=== PATIENT | female | born 1930 | race Caucasian/White ===

== ENCOUNTER 2016-07-11 08:00 | Outpatient (CLI) | payer MEDICARE, OTHER | END 2016-07-11 23:59 | DX: R19.5 Other fecal abnormalities (principal) ==

== ENCOUNTER 2017-03-24 12:00 | Outpatient (CLI) | payer MEDICARE, OTHER ==
[2017-03-24 17:46] LABS: BILIRUBIN,URINE NEGATIVE (NEGATIVE)
[2017-03-24 18:30] LABS: UR CULTURE IF IND NOT INDICATED; WBC,URINE 0-3 /HPF (0-5)
== END 2017-03-24 12:01 ==
LOC: LAB.R 12:00
PROVIDERS: ATTEND Nurse Practitioner Family
DX: N39.0 Urinary tract infection, site not specified (principal)
CPT/HCPCS: 81001; 87086

== ENCOUNTER 2017-05-12 16:04 | Outpatient (CLI) | payer MEDICARE, OTHER ==
[2017-05-12 17:33] LABS: BASOPHILS # (AUTO) 0.1 10^3/uL (0.0-0.1); BASOPHILS % (AUTO) 0.9 %; EOSINOPHILS # (AUTO) 0.1 10^3/uL (0.0-0.7); EOSINOPHILS % (AUTO) 2.3 %; HGB - HEMOGLOBIN 14.1 g/dL (12.0-16.0); LYMPHOCYTES # (AUTO) 1.8 10^3/uL (1.5-3.5); LYMPHOCYTES % (AUTO) 29.4 %; MEAN CORPUSCULAR HEMOGLOBIN 30.9 pg (27.0-31.0); MEAN CORPUSCULAR HGB CONC 33.8 g/dL (32.0-36.0); MEAN CORPUSCULAR VOLUME 91.3 fL (81.0-99.0); MEAN PLATELET VOLUME 8.1 fL (7.9-10.8); MONOCYTES # (AUTO) 0.5 10^3/uL (0.0-1.0); NEUTROPHILS # (AUTO) 3.6 10^3/uL (1.5-6.6); NEUTROPHILS % (AUTO) 59.4 %; PLT - PLATELET COUNT 231 10^3/uL (130-450); RED BLOOD COUNT 4.56 10^6/uL (4.20-5.40); RED CELL DISTRIBUTION WIDTH 13.2 % (12.0-15.0)
[2017-05-12 17:46] LABS: ALBUMIN 4.5 g/dL (3.2-5.5); ALBUMIN/GLOBULIN RATIO 1.6 (1.0-2.2); BILIRUBIN,TOTAL 0.6 mg/dL (0.2-1.0); CALCIUM 9.6 mg/dL (8.5-10.3); CREATININE 0.8 mg/dL (0.4-1.0); TOTAL PROTEIN 7.4 g/dL (6.7-8.2)
== END 2017-05-12 16:05 | disposition home or self-care (01) ==
LOC: LAB.F 16:04
PROVIDERS: ATTEND Physician Assistant Medical
DX: I10 Essential (primary) hypertension (principal)
CPT/HCPCS: 36415; 80053; 85025

== ENCOUNTER 2017-05-29 13:01 | Outpatient (CLI) | payer MEDICARE, OTHER | END 2017-05-29 13:02 | disposition critical access hospital (66) | LOC: EMS 13:01 | PROVIDERS: ATTEND Surgery | DX: R42 Dizziness and giddiness (principal); R10.9 Unspecified abdominal pain; R20.2 Paresthesia of skin | CPT/HCPCS: A0425; A0429 ==

== ENCOUNTER 2017-05-29 13:37 | Emergency (ER) | payer MEDICARE, OTHER ==
--- NOTE | 2017-05-29 14:34 | ED Physician Documentation ---
PD HPI FOCAL NEURO - Stated complaint Stated Complaint: DIZZY, UPPER GASTRIC PAIN, BILAT NUMBNESS - Chief complaint Chief Complaint: General - History obtained from History obtained from: Patient - History of Present Illness Timing - onset: How many days ago (few days of feeling lightheaded at times. Few weeks of both legs/feet feeling numbness and intermittent some cramping. More with resting and not with walking. No edema nor discoloration. No symptoms of arms nor face.) Timing - duration: Days Timing - details: Gradual onset, Waxing and waning Severity of deficit: Moderate Weakness: No: Face, Arm, Hand, Leg, Foot, Right, Left, Other Numbness: Leg, Foot, Right, Left. No: Face, Arm, Hand Associated symptoms: No: Headache, Nausea / vomiting, Seizure, Head injury, Chest pain, Fever Contributing factors: negative: Anticoagulated, Vascular dz, Atrial fibrillation Baseline status: positive: A&OX3, ambulatory, indep Similar symptoms before: Has not had sx before Recently seen: Not recently seen Review of Systems Constitutional: denies: Fever, Chills Eyes: denies: Loss of vision, Decreased vision Nose: denies: Rhinorrhea / runny nose, Congestion Throat: denies: Sore throat Cardiac: reports: Chest pain / pressure. denies: Palpitations Respiratory: denies: Dyspnea, Cough GI: denies: Abdominal Pain, Nausea, Vomiting, Diarrhea : denies: Dysuria, Frequency Neurologic: reports: Numbness (both legs and feet feeling numbness). denies: Focal weakness, Difficulty speaking, Near syncope (but feeling lightheaded at times), Confused, Altered mental status, Headache, Head injury PD PAST MEDICAL HISTORY - Past Medical History Cardiovascular: Hypertension, High cholesterol Neuro: None Endocrine/Autoimmune: None GI: Diverticulitis - Past Surgical History Past Surgical History: Yes General: Cholecystectomy, Appendectomy, Colonoscopy Ortho: Knee replacement /[employer] REP: Hysterectomy - Present Medications Home Medications: Ambulatory Orders Medication Instructions Recorded Confirmed Omeprazole [PriLOSEC] 20 mg PO DAILY #14 capsule 03/11/16 05/29/17 Docusate Sodium 100 mg PO DAILY PRN #30 capsule 05/29/17 Famotidine [Pepcid] 20 mg PO ONCE #30 tablet 05/29/17 traZODone [Desyrel] 0.5 tab PO DAILY 05/29/17 05/29/17 - Allergies Allergies/Adverse Reactions: Allergies Allergy/AdvReac Type Severity Reaction Status Date / Time Penicillins Allergy Unknown Verified 05/29/17 13:50 codeine AdvReac Nausea Verified 05/29/17 13:50 - Social History Does the pt smoke?: No Smoking Status: Never smoker Does the pt drink ETOH?: Yes Does the pt have substance abuse?: No - Family History Family history: reports: Non contributory - Immunizations Immunizations are current?: Yes - POLST Patient has POLST: No PD ED PE NORMAL - Vitals Vital signs reviewed: Yes - General General: Alert and oriented X 3, Well developed/nourished - HEENT HEENT: PERRL, EOMI, Ears normal, Pharynx benign - Neck Neck: Supple, no meningeal sign, No bony TTP, No adenopathy, No JVD - Cardiac Cardiac: RRR, No murmur - Respiratory Respiratory: Clear bilaterally - Abdomen Abdomen: Soft, Non tender - Female Female : Deferred - Rectal Rectal: Deferred - Back Back: No CVA TTP, No spinal TTP - Derm Derm: Normal color, Warm and dry, No rash - Extremities Extremities: No deformity, No tenderness to palpate, Normal ROM s pain, No edema , No calf tenderness / cord - Neuro Neuro: Alert and oriented X 3, strip winder 2-12 intact, No motor deficit, No sensory deficit (though she says her feel feel numb, she is able to feel sensation of touch and sharpness in feet/ankles. Good color and pulses in feet. ), Normal speech - Psych Psych: Normal mood NIHSS - Level of Consciousness Level of consciousness: (0) Alert, Keenly responsive LOC Questions: (0) Answers both Q's correct LOC Commands: (0) Performs both correctly - Gaze Best Gaze: (0) Normal - Visual Visual: (0) No loss - Facial Palsy Facial Palsy: (0) Normal, symmetrical movement - Motor Arms (both separate) Motor Arm (right): (0) No drift Motor Arm (left): (0) No drift - Motor Legs (both separate) Motor Leg (right): (0) No drift Motor Leg (left): (0) No drift - Limb Ataxia Limb Ataxia: (0) Absent - Sensory Sensory: (0) Normal - Best Language Best Language: (0) No aphasia - Dysarthria Dysarthria: (0) Normal - Extinction and Inattention (formally neg Extinction and inattention: (0) No abnormality - Total Score/Results Total Score/Result: 0 Results - Vitals Vitals: Oxygen O2 Source Room air - EKG (time done) 16:59 Rhythm: NSR [place]: LAD Intervals: Normal CT, RBBB QRS: LVH Ischemia: No: ST elevation c/w ischemia, ST depression Compare to prior EKG: Old EKG unavailable - Labs Labs: Laboratory Tests 05/29/17 05/29/17 05/29/17 14:00 16:23 16:23 WBC 6.0 RBC 4.48 Hgb 14.3 Hct 40.6 MCV 90.7 MCH 31.9 H MCHC 35.2 RDW 13.1 Plt Count 259 MPV 7.8 L Neut # 4.2 Lymph # 1.2 L [place] # 0.4 Eos # 0.1 Baso # 0.1 Absolute Nucleated RBC 0.00 Nucleated RBC % 0.0 Sodium 131 L Potassium 4.1 Chloride 99 L Carbon Dioxide 22 Anion Gap 10.0 BUN 11 Creatinine 0.7 Estimated GFR (MDRD) 80 L Glucose 108 H Calcium 9.4 Magnesium 2.2 Total Bilirubin 0.8 AST 24 ALT 15 Alkaline Phosphatase 62 Troponin I Total Protein 7.3 Albumin 4.5 Globulin 2.8 Albumin/Globulin Ratio 1.6 Lipase 25 TSH Urine Color YELLOW Urine Clarity CLEAR Urine pH 7.5 Ur Specific [place] 1.010 Urine Protein NEGATIVE Urine Glucose (UA) NEGATIVE Urine Ketones NEGATIVE Urine Occult Blood NEGATIVE Urine Nitrite NEGATIVE Urine Bilirubin NEGATIVE Urine Urobilinogen 0.2 (NORMAL) Ur Leukocyte Esterase NEGATIVE Ur Microscopic Review NOT INDICATED Urine Culture Comments NOT INDICATED 05/29/17 05/29/17 16:23 16:23 WBC RBC Hgb Hct MCV MCH MCHC RDW Plt Count MPV Neut # Lymph # [place] # Eos # Baso # Absolute Nucleated RBC Nucleated RBC % Sodium Potassium Chloride Carbon Dioxide Anion Gap BUN Creatinine Estimated GFR (MDRD) Glucose Calcium Magnesium Total Bilirubin AST ALT Alkaline Phosphatase Troponin I < 0.04 Total Protein Albumin Globulin Albumin/Globulin Ratio Lipase TSH 3.29 Urine Color Urine Clarity Urine pH Ur Specific [place] Urine Protein Urine Glucose (UA) Urine Ketones Urine Occult Blood Urine Nitrite Urine Bilirubin Urine Urobilinogen Ur Leukocyte Esterase Ur Microscopic Review Urine Culture Comments - Rads (name of study) head CT Radiology: Prelim report reviewed (normal for age; no acute findings) PD MEDICAL DECISION MAKING - ED course Complexity details: reviewed results, considered differential (I don't have a reason for her leg/feet numbness. Circulation appears normal. Lytes are okay. Not diabetic. Not on meds to suspect it (such as statins). upper abd pain sounds likely constipation but consider gastritis (not hurting nor improved directly with eating though). ), d/w patient Departure - Departure Disposition: 01 Home, Self Care Clinical Impression: Bilateral leg numbness, Upper abdominal pain, Light-headed feeling Condition: Stable Record reviewed to determine appropriate education?: Yes Instructions: ED Epigastric Pain UKO, ED Paraesthesias Follow-Up: Jose John MD [Primary Care Provider] - Prescriptions: Docusate Sodium 100 mg PO DAILY PRN #30 capsule PRN Reason: Constipation Famotidine [Pepcid] 20 mg PO ONCE #30 tablet Comments: I do not have an obvious answer for your leg numbness. Sometimes it is nerve irritation (neuropathy). For your upper abdominal pain, I would try a stool softener daily and an acid reducing medicine. Your basic blood tests appear normal here. Follow-up with your primary care early next week for follow-up on this and to see how much improvement you are having. Tylenol 500 mg every 6 hours if needed for pains. Discharge Date/Time: 05/29/17 17:38
--- NOTE | 2017-05-29 16:16 | CT Preliminary Report ---
Exam: CT HEAD W/O IMPRESSION: Generalized age-related cortical atrophic changes without evidence of acute intracranial abnormality. [facility] SITE ID: [id number]
--- NOTE | 2017-05-29 16:16 | CT Report ---
EXAM: CT HEAD EXAM DATE: 05/29/2017 03:59 PM. CLINICAL HISTORY: Headache abrupt during night. COMPARISON: None. TECHNIQUE: Multiaxial CT images were obtained from the foramen magnum to the vertex. Reformats: Coron al. IV contrast: None. In accordance with CT protocol optimization, one or more of the following dose reduction techniques w ere utilized for this exam: automated exposure control, adjustment of mA and/or KV based on patient s ize, or use of iterative reconstructive technique. FINDINGS: Parenchyma: No intraparenchymal hemorrhage. No evidence of mass, midline shift, or CT findings of acu te infarction. Guerra-white differentiation is distinct. Diffuse chronic microangiopathic white matter changes are evident. Extraaxial Spaces: Normal for age. No subdural or epidural collections identified. Ventricles: The ventricles and cortical sulci are enlarged, consistent with age-related tissue loss. Sinuses and orbits: Status post bilateral lens replacement surgery. Imaged paranasal sinuses, orbits otherwise, and mastoids show no significant abnormality. Bones: No evidence of fracture or calvarial defect. Other: None. IMPRESSION: Generalized age-related cortical atrophic changes without evidence of acute intracranial abnormality. [facility] Referring Provider Line: [phone] SITE ID: [id number]
[2017-05-29 16:17] LABS: BILIRUBIN,URINE NEGATIVE (NEGATIVE); GLUCOSE, URINE (UA) NEGATIVE (NEGATIVE); KETONES,URINE (UA) NEGATIVE (NEGATIVE); LEUKOCYTE ESTERASE, URINE NEGATIVE (NEGATIVE); NITRITE,URINE NEGATIVE (NEGATIVE); OCCULT BLOOD,URINE NEGATIVE (NEGATIVE); PH,URINE 7.5 PH (5.0-7.5); PROTEIN,URINE NEGATIVE (NEGATIVE); UROBILINOGEN,URINE 0.2 (NORMAL) E.U./dL (NORMAL)
[2017-05-29 16:18] LABS: CLARITY,URINE CLEAR (CLEAR)
[2017-05-29 16:36] LABS: BASOPHILS # (AUTO) 0.1 10^3/uL (0.0-0.1); BASOPHILS % (AUTO) 1.3 %; EOSINOPHILS # (AUTO) 0.1 10^3/uL (0.0-0.7); EOSINOPHILS % (AUTO) 1.1 %; HGB - HEMOGLOBIN 14.3 g/dL (12.0-16.0); LYMPHOCYTES # (AUTO) 1.2 10^3/uL (1.5-3.5); LYMPHOCYTES % (AUTO) 20.9 %; MEAN CORPUSCULAR HEMOGLOBIN 31.9 pg (27.0-31.0); MEAN CORPUSCULAR HGB CONC 35.2 g/dL (32.0-36.0); MEAN CORPUSCULAR VOLUME 90.7 fL (81.0-99.0); MEAN PLATELET VOLUME 7.8 fL (7.9-10.8); MONOCYTES # (AUTO) 0.4 10^3/uL (0.0-1.0); MONOCYTES % (AUTO) 6.1 %; NEUTROPHILS # (AUTO) 4.2 10^3/uL (1.5-6.6); NEUTROPHILS % (AUTO) 70.6 %; PLT - PLATELET COUNT 259 10^3/uL (130-450); RED BLOOD COUNT 4.48 10^6/uL (4.20-5.40); RED CELL DISTRIBUTION WIDTH 13.1 % (12.0-15.0)
[2017-05-29 16:42] LABS: ALBUMIN 4.5 g/dL (3.2-5.5); ALBUMIN/GLOBULIN RATIO 1.6 (1.0-2.2); BILIRUBIN,TOTAL 0.8 mg/dL (0.2-1.0); CALCIUM 9.4 mg/dL (8.5-10.3); CREATININE 0.7 mg/dL (0.4-1.0); MAGNESIUM 2.2 mg/dL (1.7-2.8); TOTAL PROTEIN 7.3 g/dL (6.7-8.2)
[2017-05-29 17:29] VITALS: BP 163/73
== END 2017-05-29 17:38 | disposition home or self-care (01) ==
LOC: EDUNIT# → EDBD → ED 13:37
DX: R20.0 Anesthesia of skin (principal); R10.13 Epigastric pain; R42 Dizziness and giddiness; I45.2 Bifascicular block; I10 Essential (primary) hypertension; E78.00 Pure hypercholesterolemia, unspecified; Z96.659 Presence of unspecified artificial knee joint
CPT/HCPCS: 36415; 70450; 80053; 81001; 81003; 83690; 83735; 84443; 84484; 85025; 87086; 93005; 99283; 99284

== ENCOUNTER 2017-06-03 08:59 | Outpatient (CLI) | payer MEDICARE, OTHER ==
[2017-06-03 18:12] LABS: CHOL/HDL RATIO 3.7 (<4.4); CHOLESTEROL 250 mg/dL; HDL CHOLESTEROL 68 mg/dL; LDL CHOLESTEROL,CALCULATED 132 mg/dL; LDL/HDL RATIO 1.9 (<4.4); VLDL CHOLESTEROL 50 mg/dL
== END 2017-06-03 09:00 | disposition home or self-care (01) ==
LOC: LAB.F 08:59
PROVIDERS: ATTEND Physician Assistant Medical
DX: E78.5 Hyperlipidemia, unspecified (principal)
CPT/HCPCS: 36415; 80061; 83721

== ENCOUNTER 2017-06-05 10:42 | Outpatient (CLI) | payer MEDICARE, OTHER ==
--- NOTE | 2017-06-05 14:22 | XRAY Report ---
COMPLETE LUMBAR SPINE: 06/05/2017 CLINICAL INDICATION: Foot numbness. FINDINGS: AP, lateral, oblique, and coned down views of the lumbar spine were obtained. There is left hemisacralization of the L5 vertebral body, with pseudoarthrosis formation. Moderate degenerative disk and facet disease is present, with disk space narrowing worst at L4-L5. There is minimal degenerative anterolisthesis of L3 on L4. No compression fracture is seen. The bowel gas pattern is normal. 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 TD: 06/05/2017 14:17
== END 2017-06-05 10:43 | disposition home or self-care (01) ==
LOC: DI.S 10:42
PROVIDERS: ATTEND Physician Assistant Medical
DX: M51.36 Other intervertebral disc degeneration, lumbar region (principal); M47.896 Other spondylosis, lumbar region; M43.16 Spondylolisthesis, lumbar region
CPT/HCPCS: 72110

== ENCOUNTER 2017-06-16 12:59 | Outpatient (CLI) | payer MEDICARE, OTHER ==
[~2017-06-16 12:59] MED LIST: GADOBUTROL 7.5 MMOL/7.5 ML VIAL ONE
[2017-06-16] MEDS ORDERED: GADOBUTROL 7.5 MMOL/7.5 ML VIAL IVP ONE (13:57)
--- NOTE | 2017-06-16 15:17 | MRI Report ---
EXAM MRA BRAIN EXAM DATE: 06/16/2017 01:51 PM. CLINICAL HISTORY: DIZZINESS AND GIDDINESS,ANESTHESIA OF SKIN. COMPARISON: CT head 05/29/2017 TECHNIQUE: Multiplanar, multisequence MRA sequences of the brain were performed. Other: None. Post-pr ocessing: Multiplanar 3D MIP reconstructions. IV Contrast: None. FINDINGS: RIGHT Internal Carotid (ICA): No aneurysm, stenosis or anomaly. Middle Cerebral (MCA): No aneurysm, stenosis or anomaly. Anterior Cerebral (JUANI): No aneurysm, stenosis or anomaly. Posterior Cerebral (PARKING LOT ATTENDANT): No aneurysm, stenosis or anomaly. Posterior Communicating (P-COM): The P1 segment is small but patent. Prominent right posterior commun icating artery additionally supplies the right PARKING LOT ATTENDANT which is otherwise unremarkable. Vertebral: The right vertebral artery is dominant. The V3 and proximal V4 segments are not well-visua lized likely due to in plane saturation. No aneurysm, stenosis or anomaly in the visualized upper seven tebral artery. LEFT Internal Carotid (ICA): No aneurysm, stenosis or anomaly. Middle Cerebral (MCA): No aneurysm, stenosis or anomaly. Anterior Cerebral (JUANI): No aneurysm, stenosis or anomaly. Posterior Cerebral (PARKING LOT ATTENDANT): The P1 segment of the left PARKING LOT ATTENDANT is not clearly visualized, likely hypoplasti c or aplastic.. Prominent left posterior communicating artery primarily supplies the left PARKING LOT ATTENDANT which i s otherwise unremarkable. Posterior Communicating (P-COM): No aneurysm, stenosis or anomaly. Vertebral: The V3 and proximal V4 segments are not well-visualized likely due to in plane saturation No aneurysm, stenosis or anomaly in the visualized upper vertebral artery. MIDLINE Anterior Communicating (A-COM): No aneurysm, stenosis or anomaly. Basilar Artery:No aneurysm, stenosis or anomaly. Other: None. IMPRESSION: 1. No MRA evidence of hemodynamically significant stenosis, dissection, occlusion, aneurysm, or vascu lar malformation within the intracranial arteries. [facility] Referring Provider Line: [phone] SITE ID: [id number]
--- NOTE | 2017-06-16 15:21 | MRI Report ---
EXAM: MR ANGIOGRAM NECK EXAM DATE: 06/16/2017 02:06 PM. CLINICAL HISTORY: DIZZINESS AND GIDDINESS,ANESTHESIA OF SKIN. COMPARISON: MRA head obtained concurrently TECHNIQUE: Multiplanar, multisequence MRA sequences of the neck were performed. Other: None. Post-pro cessing: Multiplanar 3D MIP reconstructions. IV Contrast: Without and with. 6 mL Gadavist Evaluation of arterial stenosis is based on a NASCET method of measurement. FINDINGS: RIGHT Common Carotid: Patent. No dissection or significant stenosis. Internal Carotid: Patent. No dissection or significant stenosis. External Carotid: Patent. No dissection or significant stenosis. Vertebral: Right vertebral artery is dominant. Patent. No dissection or significant stenosis. LEFT Common Carotid: Patent. No dissection or significant stenosis. Internal Carotid: Patent. No dissection or significant stenosis. External Carotid: Patent. No dissection or significant stenosis. Vertebral: The left vertebral artery is nondominant. Patent. No dissection or significant stenosis. Intracranial Circulation: Concurrently obtained MRA head is dictated separately. Other: The soft tissues, bones, and lung apices are unremarkable. IMPRESSION: Normal neck MRA. No hemodynamically significant stenoses, dissections, occlusions, aneury sms, or vascular malformations. [facility] Referring Provider Line: [phone] SITE ID: [id number]
== END 2017-06-16 13:00 | disposition home or self-care (01) ==
LOC: DI 12:59
PROVIDERS: ATTEND Physician Assistant Medical
DX: R42 Dizziness and giddiness (principal); R20.0 Anesthesia of skin; E78.5 Hyperlipidemia, unspecified
CPT/HCPCS: 70544; 70549; A9585

== ENCOUNTER 2017-10-09 12:53 | Outpatient (CLI) | payer MEDICARE, OTHER ==
--- NOTE | 2017-10-09 15:26 | Mammography Report ---
Procedure Date: 10/09/2017 Accession Number: [id number] / [id number] Procedure: CHARLES - Diagnostic Dig Bilat CPT Code: FULL RESULT: EXAM: Diagnostic Dig Bilat DATE: 10/09/2017 1:46 PM CLINICAL HISTORY: Inferior right breast pain, one episode of milky white nipple discharge from the right breast TECHNIQUE: Bilateral CC, MLO; right true lateral and spot magnification views COMPARISON: None. This is a new baseline. Report of previous mammogram dated 02/07/2010. FINDINGS: The breasts demonstrate scattered fibroglandular densities bilaterally. A few coarse, typically benign calcifications are present. No suspicious masses, clustered microcalcifications, or regions of architectural distortion are identified. Specifically, no right periareolar or inferior breast abnormality is appreciated. Please also refer to right breast ultrasound of the same day. IMPRESSION: Benign findings RECOMMENDATION: Recommend routine annual screening mammography unless otherwise clinically indicated. BIRADS CATEGORY 2: Benign findings STANDARD QUALIFYING STATEMENTS: 1. This examination was reviewed with the aid of Computer-Aided Detection (CAD). 2. A negative or benign imaging report should not delay biopsy if clinically suspicious findings are present. Consider surgical consultation if warrented. More than 5% of cancers are not identified by imaging. 3. Dense breasts may obscure an underlying neoplasm.
--- NOTE | 2017-10-09 15:27 | Ultrasound Report ---
Reason: RIGHT BREAST NIPPLE DISCHARGE Procedure Date: 10/09/2017 Accession Number: [id number] / [id number] Procedure: US - Breast Unilateral Limited CPT Code: FULL RESULT: EXAM: Breast Unilateral Limited DATE: 10/09/2017 3:15 PM CLINICAL HISTORY: RIGHT BREAST NIPPLE DISCHARGE TECHNIQUE: Real-time scanning, with senior sales representative static images obtained COMPARISON: Diagnostic mammogram same day FINDINGS: Scanning of the right periareolar breast reveals no evidence of a subareolar lesion. Normal subareolar ducts are identified. No sonographically suspicious findings are seen. IMPRESSION: Negative examination. Recommendation: Routine annual screening unless otherwise clinically indicated. BI-RADS Category 1 negative
== END 2017-10-09 12:54 | disposition home or self-care (01) ==
LOC: DI 12:53
PROVIDERS: ATTEND Physician Assistant Medical
DX: N63.10 Unspecified lump in the right breast, unspecified quadrant (principal); N64.52 Nipple discharge; N64.4 Mastodynia
CPT/HCPCS: 76642; 77066

== ENCOUNTER 2017-10-17 22:19 | Outpatient (CLI) | payer MEDICARE, OTHER | END 2017-10-17 22:20 | disposition critical access hospital (66) | LOC: EMS 22:19 | PROVIDERS: ATTEND Surgery | DX: R42 Dizziness and giddiness (principal); R07.89 Other chest pain | CPT/HCPCS: A0425; A0427 ==

== ENCOUNTER 2017-10-17 22:46 | Emergency (ER) | payer MEDICARE, OTHER ==
--- NOTE | 2017-10-17 23:16 | ED Physician Documentation ---
PD HPI CHEST PAIN - Stated complaint Stated Complaint: DIZZY/CHEST PRESSURE - Chief complaint Chief Complaint: Cardiac - History obtained from History obtained from: Patient - History of Present Illness Timing - onset: Today (onset about 2 pm this afternoon while gardening, noted feeling of lightheadedness, which did not concur with standing up or change position. This lasted few minutes and then recurred a few times over the next hour or so. She also developed some chest tightness. No dyspnea, nausea, palpitations. Had been eating and drinking adequately earlier in the day. She continued to feel lightheaded, with weakness and chest pressure through afternoon into evening. Here for evaluation. Denies vertigo, abd pain, headache. ) Timing - onset during: Light activity (gardening) Timing - duration: Hours (about 8 hours) Timing - details: Abrupt onset, Still present, Waxing and waning. No: Intermittant Quality: Pressure, Tightness Location: Substernal Worsened by: No: Exertion, Inspiration, Eating Associated symptoms: Feeling faint / dizzy, General Weakness. No: Shortness of air, Diaphoresis, Nausea Similar symptoms before: Has not had sx before Recently seen: Not recently seen Review of Systems Constitutional: denies: Fever, Chills, Myalgias Nose: denies: Rhinorrhea / runny nose, Congestion Throat: denies: Sore throat Cardiac: reports: Chest pain / pressure. denies: Palpitations, Pedal edema, Calf pain Respiratory: denies: Dyspnea, Cough, Wheezing GI: reports: Nausea. denies: Abdominal Pain, Vomiting, Diarrhea : denies: Dysuria, Frequency Musculoskeletal: denies: Extremity swelling Neurologic: reports: Generalized weakness. denies: Focal weakness, Numbness, Near syncope, Altered mental status, Headache Endocrine: denies: Weight loss, Easy bruising / bleeding Immunocompromised: denies: Immunocompromised PD PAST MEDICAL HISTORY - Past Medical History Cardiovascular: Hypertension, High cholesterol Endocrine/Autoimmune: None GI: Diverticulitis - Past Surgical History Past Surgical History: Yes General: Cholecystectomy, Appendectomy, Colonoscopy Ortho: Knee replacement /[employer] MANAGER: Hysterectomy - Present Medications Home Medications: Ambulatory Orders Medication Instructions Recorded Confirmed Omeprazole [PriLOSEC] 20 mg PO DAILY #14 capsule 03/11/16 05/29/17 Docusate Sodium 100 mg PO DAILY PRN #30 capsule 05/29/17 Famotidine [Pepcid] 20 mg PO ONCE #30 tablet 05/29/17 traZODone [Desyrel] 0.5 tab PO DAILY 05/29/17 05/29/17 - Allergies Allergies/Adverse Reactions: Allergies Allergy/AdvReac Type Severity Reaction Status Date / Time Penicillins Allergy Unknown Verified 10/17/17 22:54 codeine AdvReac Nausea Verified 10/17/17 22:54 - Social History Does the pt smoke?: No Smoking Status: Never smoker Does the pt drink ETOH?: Yes Does the pt have substance abuse?: No - Family History Family history: reports: Non contributory. denies: CAD - Immunizations Immunizations are current?: Yes - POLST Patient has POLST: No PD ED PE NORMAL - Vitals Vital signs reviewed: Yes - General General: Alert and oriented X 3, No acute distress, Well developed/nourished - HEENT HEENT: Moist mucous membranes, Pharynx benign - Neck Neck: Supple, no meningeal sign - Cardiac Cardiac: RRR, No murmur - Respiratory Respiratory: No respiratory distress, Clear bilaterally - Abdomen Abdomen: Normal bowel sounds, Soft, Non tender, Non distended - Female Female : Deferred - Rectal Rectal: Deferred - Back Back: No CVA TTP - Derm Derm: Normal color - Extremities Extremities: No deformity, No tenderness to palpate, Normal ROM s pain, No edema , No calf tenderness / cord - Neuro Neuro: Alert and oriented X 3, No motor deficit, Normal speech - Psych Psych: Normal mood. No: Normal affect (somewhat anxious) Results - Vitals Vitals: Vital Signs - 24 hr 10/17/17 10/18/17 10/18/17 22:49 01:00 01:25 Temperature 36.5 C Heart Rate 88 76 Heart Rate [ 76 Supine] Respiratory 18 18 Rate Blood Pressure 158/90 H 134/70 H Blood Pressure 150/82 H [Supine] O2 Saturation 96 95 10/18/17 01:30 Temperature Heart Rate Heart Rate [ 81 Supine] Respiratory Rate Blood Pressure Blood Pressure 141/87 H [Supine] O2 Saturation Oxygen O2 Source Room air - EKG (time done) 22:53 Rate: Rate (enter#) (91) Rhythm: NSR [place]: Normal Intervals: RBBB QRS: Normal Ischemia: Normal ST segments, Non specific changes. No: ST elevation c/w ischemia Compare to prior EKG: Unchanged from prior EKG (May 2017) - Labs Labs: Laboratory Tests 10/17/17 10/17/17 10/17/17 23:48 23:48 23:48 WBC 6.1 RBC 4.47 Hgb 14.1 Hct 41.2 MCV 92.3 MCH 31.6 H MCHC 34.3 RDW 13.0 Plt Count 200 MPV 7.9 Neut # (Auto) 3.5 Lymph # (Auto) 1.8 [place] # (Auto) 0.6 Eos # (Auto) 0.1 Baso # (Auto) 0.1 Absolute Nucleated RBC 0.01 Nucleated RBC % 0.1 Sodium 132 L Potassium 3.8 Chloride 99 L Carbon Dioxide 24 Anion Gap 9.0 BUN 11 Creatinine 0.8 Estimated GFR (MDRD) 68 L Glucose 108 H Calcium 9.5 Magnesium 2.0 Total Bilirubin 0.7 AST 24 ALT 17 Alkaline Phosphatase 65 Troponin I < 0.04 B-Natriuretic Peptide Total Protein 7.6 Albumin 4.3 Globulin 3.3 Albumin/Globulin Ratio 1.3 Lipase 32 10/17/17 23:48 WBC RBC Hgb Hct MCV MCH MCHC RDW Plt Count MPV Neut # (Auto) Lymph # (Auto) [place] # (Auto) Eos # (Auto) Baso # (Auto) Absolute Nucleated RBC Nucleated RBC % Sodium Potassium Chloride Carbon Dioxide Anion Gap BUN Creatinine Estimated GFR (MDRD) Glucose Calcium Magnesium Total Bilirubin AST ALT Alkaline Phosphatase Troponin I B-Natriuretic Peptide 29 Total Protein Albumin Globulin Albumin/Globulin Ratio Lipase PD MEDICAL DECISION MAKING - ED course Complexity details: reviewed results, considered differential, d/w patient - Sepsis Event Vital Signs: Vital Signs - 24 hr 10/17/17 10/18/17 10/18/17 22:49 01:00 01:25 Temperature 36.5 C Heart Rate 88 76 Heart Rate [ 76 Supine] Respiratory 18 18 Rate Blood Pressure 158/90 H 134/70 H Blood Pressure 150/82 H [Supine] O2 Saturation 96 95 10/18/17 01:30 Temperature Heart Rate Heart Rate [ 81 Supine] Respiratory Rate Blood Pressure Blood Pressure 141/87 H [Supine] O2 Saturation Oxygen O2 Source Room air Departure - Departure Disposition: 01 Home, Self Care Clinical Impression: Episodic lightheadedness Condition: Stable Record reviewed to determine appropriate education?: Yes Instructions: ED Near Syncope Unkn Follow-Up: Prerna Hopkins PA-C [Primary Care Provider] - Comments: Stay well-hydrated. Continue usual medications. Recheck with your primary care if recurrent episodes over the next few days. Return to the ER if worsening. Discharge Date/Time: 10/18/17 01:45
[2017-10-17] MEDS ORDERED: MAG HYDROX/AL HYDROX/SIMETH 30 ML UDC PO STA (23:35)
[2017-10-17] MEDS ORDERED: LIDOCAINE VISCOUS 2% 15 ML UDC MM STA (23:35)
[2017-10-17 23:57] LABS: BASOPHILS # (AUTO) 0.1 10^3/uL (0.0-0.1); BASOPHILS % (AUTO) 0.9 %; EOSINOPHILS # (AUTO) 0.1 10^3/uL (0.0-0.7); EOSINOPHILS % (AUTO) 2.4 %; HGB - HEMOGLOBIN 14.1 g/dL (12.0-16.0); LYMPHOCYTES # (AUTO) 1.8 10^3/uL (1.5-3.5); LYMPHOCYTES % (AUTO) 29.8 %; MEAN CORPUSCULAR HEMOGLOBIN 31.6 pg (27.0-31.0); MEAN CORPUSCULAR HGB CONC 34.3 g/dL (32.0-36.0); MEAN CORPUSCULAR VOLUME 92.3 fL (81.0-99.0); MEAN PLATELET VOLUME 7.9 fL (7.9-10.8); MONOCYTES # (AUTO) 0.6 10^3/uL (0.0-1.0); MONOCYTES % (AUTO) 9.4 %; NEUTROPHILS # (AUTO) 3.5 10^3/uL (1.5-6.6); NEUTROPHILS % (AUTO) 57.5 %; PLT - PLATELET COUNT 200 10^3/uL (130-450); RED BLOOD COUNT 4.47 10^6/uL (4.20-5.40); WHITE BLOOD COUNT 6.1 x10^3/uL (4.8-10.8)
[2017-10-18 00:11] LABS: ALBUMIN 4.3 g/dL (3.2-5.5); ALBUMIN/GLOBULIN RATIO 1.3 (1.0-2.2); BILIRUBIN,TOTAL 0.7 mg/dL (0.2-1.0); CALCIUM 9.5 mg/dL (8.5-10.3); CREATININE 0.8 mg/dL (0.4-1.0); TOTAL PROTEIN 7.6 g/dL (6.7-8.2)
[2017-10-18 01:32] VITALS: BP 141/87
== END 2017-10-18 01:45 | disposition home or self-care (01) ==
LOC: SUPCPDRO 22:46 → ED 22:46
DX: R42 Dizziness and giddiness (principal); I10 Essential (primary) hypertension; I45.10 Unspecified right bundle-branch block
CPT/HCPCS: 36415; 80053; 83690; 83735; 83880; 84484; 85025; 93005; 99283; 99284; A9270

== ENCOUNTER 2017-12-10 08:27 | Outpatient (CLI) | payer MEDICARE, OTHER ==
--- NOTE | 2017-12-10 14:11 | Nuclear Medicine Report ---
Procedure Date: 12/10/2017 Accession Number: [id number] / [id number] Procedure: NM - Myocardial Perfusion STR/RST CPT Code: FULL RESULT: EXAM: SINGLE-ISOTOPE PHARMACOLOGICAL STRESS TEST WITH REGADENOSON. SINGLE-ISOTOPE AND ONE-DAY REST/STRESS MYOCARDIAL PERFUSION SCANS WITH TOMOGRAPHIC IMAGING, QUANTITATIVE ANALYSIS, WALL MOTION ANALYSIS AND CALCULATION OF EJECTION FRACTION. EXAM DATE: 12/10/2017 12:30 PM. CLINICAL HISTORY: CHEST PAIN, LIGHTHEADED. COMPARISON: None available. TECHNIQUE: After the intravenous administration of 10.1 mCi of Tc-99m sestamibi, a rest myocardial perfusion scan was done with tomography. Motion correction was applied when appropriate. After an appropriate delay, pharmacological stress was performed with the infusion of 0.4 mg regadenoson per protocol. According to protocol, 43 mCi of Tc-99m sestamibi was injected for stress myocardial perfusion scan. Motion correction was applied when appropriate. Gated tomographic images were obtained for wall motion analysis and computation of left ventricular ejection fraction. FINDINGS: Images show a small, mild, fixed defect in the distal anterior wall. No other convincing fixed or reversible perfusion defects. Computer analysis: Summed stress score 16 Summed rest score 4 Summed difference score 12 Wall motion analysis demonstrates no focal wall motion abnormality. The left ventricular end-diastolic volume is 46 cc. The left ventricular end-systolic volume is 45 cc. The left ventricular ejection fraction is calculated to be 98%. IMPRESSION: 1. Small, mild fixed defect in the distal anterior wall. No convincing reversible perfusion defects on visual analysis. 2. Computed left ventricular ejection fraction of 98%. This is presumably an overestimate. 3. Normal segmental and global wall motion. 4. Normal left ventricular cavity size, no change with stress. 5. Based on computer analysis, severely abnormal exam with severe ischemia. This is discordant from evaluation based on visual analysis. RADIA
[2017-12-10 15:52] VITALS: BP 160/90
--- NOTE | 2017-12-10 17:03 | CARDIAC PROCEDURE NOTE ---
DATE OF SERVICE: 12/10/2017 Physician: EVANGELIST Avalos ORDER PROCESSING MANAGER: Fortunato Thrasher MD PROCEDURE: Myocardial perfusion treadmill. PROCEDURE SYMPTOMS: Chest pain. CARDIAC RISK FACTORS: Age, hypertension, hyperlipidemia. PREVIOUS CARDIAC PROCEDURES: MPS. CLINICAL HISTORY: An 87-year-old female without known coronary artery disease. INITIAL RESTING VITAL SIGNS: BP 162/82, heart rate 74, height 63 inches, weight 140 pounds, BMI 24.8. PROCEDURE AND FINDINGS: Patient identity and date verified. Consent signed. The patient performed treadmill exercise using a modified Chong protocol, completing 3 minutes 1 second and completing an estimated workload of 3.47 metabolic equivalents. At peak exercise, Cardiolite radioactive tracer was injected intravenously. The patient continued to exercise for 1 more minute before stopping. Maximal blood pressure was 186/70 with a heart rate of 133 beats per minute or 99% of maximum predicted heart rate for age. The blood pressure response to exercise was within normal limits. The patient stopped because she was short of air. She was mildly lightheaded before, during, and after exercise. The resting ECG demonstrates sinus rhythm with a right bundle branch block abnormality. ST segment depression was present only in V1 and 2, which are nondiagnostic. There was no ectopy. FINAL IMPRESSION 1. Negative stress electrocardiogram for ischemia by electrocardiographic criteria. 2. Negative stress test clinically for angina. 3. No ectopy. 4. Await findings of mps. TD: 12/10/2017 13:06 SULEMA
== END 2017-12-10 08:28 | disposition home or self-care (01) ==
LOC: DI 08:27
PROVIDERS: ATTEND Internal Medicine Cardiovascular Disease
DX: I25.9 Chronic ischemic heart disease, unspecified (principal); I10 Essential (primary) hypertension; E78.5 Hyperlipidemia, unspecified
CPT/HCPCS: 78452; 93017; A9500

== ENCOUNTER 2018-01-18 08:00 | Outpatient (CLI) | payer MEDICARE, OTHER ==
[2018-01-18 14:50] LABS: ALBUMIN 4.2 g/dL (3.2-5.5); ALBUMIN/GLOBULIN RATIO 1.4 (1.0-2.2); ALKALINE PHOSPHATASE 56 IU/L (42-121); ALT ALANINE AMINOTRANSFERASE 14 IU/L (10-60); AST ASPARTATE AMINOTRANSFERASE 24 IU/L (10-42); BILIRUBIN,TOTAL 0.7 mg/dL (0.2-1.0); BUN - BLOOD UREA NITROGEN 9 mg/dL (6-20); CALCIUM 9.5 mg/dL (8.5-10.3); CARBON DIOXIDE - CO2 23 mmol/L (21-32); CHLORIDE 100 mmol/L (101-111); CHOL/HDL RATIO 3.5 (<4.4); CHOLESTEROL 251 mg/dL; CREATININE 0.7 mg/dL (0.4-1.0); GFR - MDRD 79 (>89); GLUCOSE 102 mg/dL (70-100); HDL CHOLESTEROL 71 mg/dL; LDL CHOLESTEROL,CALCULATED 133 mg/dL; LDL/HDL RATIO 1.9 (<4.4); SODIUM 132 mmol/L (135-145); TOTAL PROTEIN 7.1 g/dL (6.7-8.2); VLDL CHOLESTEROL 47 mg/dL
== END 2018-01-18 08:01 | disposition home or self-care (01) ==
LOC: LAB.F 08:00
PROVIDERS: ATTEND Physician Assistant Medical
DX: Z51.81 Encounter for therapeutic drug level monitoring (principal); E78.5 Hyperlipidemia, unspecified
CPT/HCPCS: 80053; 80061; 83721

== ENCOUNTER 2018-01-27 14:08 | Emergency (ER) | payer MEDICARE, OTHER ==
--- NOTE | 2018-01-27 14:24 | ED Physician Documentation ---
PD HPI LOWER EXT INJURY - Stated complaint Stated Complaint: R KNEE PX - History obtained from History obtained from: Patient - History of Present Illness PD HPI LOW EXT INJURY LOCATION: Right, Knee Type of injury: Other (knee just started hurting without apparent injury.). No: Fall, Twist Timing - onset: How many weeks ago (2) Timing - duration: Weeks (2) Timing - details: Gradual onset, Waxing and waning Worsened by: Other (walking). No: Moving, Palpating Associated symptoms: No: Weakness, Numbness, Swelling, Discolored Similar symptoms before: Has not had sx before, Other ([place], and has had some pains to it all along. However hurting more the past 2 weeks.) Recently seen: Not recently seen Review of Systems Constitutional: denies: Fever, Chills, Myalgias Skin: denies: Rash, Lesions PD PAST MEDICAL HISTORY - Past Medical History Cardiovascular: Hypertension, High cholesterol Endocrine/Autoimmune: None GI: Diverticulitis - Past Surgical History Past Surgical History: Yes General: Cholecystectomy, Appendectomy, Colonoscopy Ortho: Knee replacement /TAX LAWYER: Hysterectomy - Present Medications Home Medications: Ambulatory Orders Medication Instructions Recorded Confirmed Omeprazole [PriLOSEC] 20 mg PO DAILY #14 capsule 03/11/16 05/29/17 Docusate Sodium 100 mg PO DAILY PRN #30 capsule 05/29/17 Famotidine [Pepcid] 20 mg PO ONCE #30 tablet 05/29/17 traZODone [Desyrel] 0.5 tab PO DAILY 05/29/17 05/29/17 Dexamethasone [Decadron] 4 mg PO DAILY #5 tablet 01/27/18 HYDROcod/ACETAM 5/325 [[place] 5/325] 1 tab PO TID PRN #20 tablet 01/27/18 - Allergies Allergies/Adverse Reactions: Allergies Allergy/AdvReac Type Severity Reaction Status Date / Time Penicillins Allergy Unknown Verified 01/27/18 14:28 codeine AdvReac Nausea Verified 01/27/18 14:28 - Social History Does the pt smoke?: No Smoking Status: Never smoker Does the pt drink ETOH?: Yes Does the pt have substance abuse?: No - Immunizations Immunizations are current?: Yes - POLST Patient has POLST: No PD ED PE NORMAL - Vitals Vital signs reviewed: Yes - General General: Alert and oriented X 3, No acute distress, Well developed/nourished - Back Back: No spinal TTP - Derm Derm: Normal color, Warm and dry, No rash - Extremities Extremities: No edema, No calf tenderness / cord, Other (right knee without redness, rash, nor effusion. No obvious laxity on ligament stress testing. Passive movement of the knee does have a slight clunky feeling. ) - Neuro Neuro: Alert and oriented X 3, No motor deficit, Normal speech Results - Vitals Vitals: Oxygen O2 Source Room air - Rads (name of study) right knee Radiology: Prelim report reviewed, EMP read contemporaneously PD MEDICAL DECISION MAKING - Sepsis Event Vital Signs: Oxygen O2 Source Room air Departure - Departure Disposition: 01 Home, Self Care Clinical Impression: Right knee pain Qualifiers: Chronicity: acute Qualified Code(s): M25.561 - Pain in right knee Condition: Stable Record reviewed to determine appropriate education?: Yes Follow-Up: Jose John MD [Primary Care Provider] - [facility] [Provider Group] Prescriptions: Dexamethasone [Decadron] 4 mg PO DAILY #5 tablet HYDROcod/ACETAM 5/325 [[place] 5/325] 1 tab PO TID PRN #20 tablet PRN Reason: Pain Comments: Decadron steroid anti-inflammatory daily for 5 days. Use Tylenol if needed for pains 4 times a day. Add hydrocodone for worse pain instead. Follow-up with orthopedics, call for an appointment. Discharge Date/Time: 01/27/18 16:52
[2018-01-27] MEDS ORDERED: traMADol 50 MG TABLET PO STA (14:31)
[2018-01-27] MEDS ORDERED: DEXAMETHASONE 10 MG/ML VIAL PO STA (14:31)
--- NOTE | 2018-01-27 16:07 | XRAY Report ---
Reason: Prior right knee replacement, pain for 2 weeks Procedure Date: 01/27/2018 Accession Number: [id number] / [id number] Procedure: XR - Knee 3 View RT CPT Code: FULL RESULT: EXAM: RIGHT KNEE RADIOGRAPHY EXAM DATE: 01/27/2018 03:43 PM. CLINICAL HISTORY: Prior right knee replacement, pain for 2 weeks. COMPARISON: None. TECHNIQUE: 3 views. FINDINGS: Bones: Osteopenia. No definite fracture or other bone lesion. Joints: Total knee prosthesis in anatomic alignment. No abnormal lucency associated with the prosthesis. Soft Tissues: Unremarkable. IMPRESSION: Status post TKR. RADIA
[2018-01-27 17:41] VITALS: BP 154/98
== END 2018-01-27 16:52 | disposition home or self-care (01) ==
LOC: ED 14:08
DX: M25.561 Pain in right knee (principal); I10 Essential (primary) hypertension; Z96.651 Presence of right artificial knee joint
CPT/HCPCS: 73562; 99283; A9270

== ENCOUNTER 2018-02-23 09:23 | Outpatient (CLI) | payer MEDICARE, OTHER | END 2018-02-23 09:24 | disposition EMS.NT | LOC: EMS 09:23 | PROVIDERS: ATTEND Surgery | DX: R10.9 Unspecified abdominal pain (principal); R11.10 Vomiting, unspecified ==

== ENCOUNTER 2018-02-23 10:21 | Emergency (ER) | payer MEDICARE, OTHER ==
[2018-02-23 11:42] LABS: BASOPHILS % (AUTO) 0.2 %; EOSINOPHILS % (AUTO) 0.1 %; LYMPHOCYTES # (AUTO) 0.4 10^3/uL (1.5-3.5); LYMPHOCYTES % (AUTO) 4.4 %; MEAN CORPUSCULAR HEMOGLOBIN 31.9 pg (27.0-31.0); MEAN CORPUSCULAR HGB CONC 34.6 g/dL (32.0-36.0); MEAN CORPUSCULAR VOLUME 92.3 fL (81.0-99.0); MEAN PLATELET VOLUME 8.1 fL (7.9-10.8); MONOCYTES # (AUTO) 0.4 10^3/uL (0.0-1.0); MONOCYTES % (AUTO) 4.6 %; NEUTROPHILS # (AUTO) 8.3 10^3/uL (1.5-6.6); NEUTROPHILS % (AUTO) 90.7 %; PLT - PLATELET COUNT 267 10^3/uL (130-450); RED BLOOD COUNT 4.38 10^6/uL (4.20-5.40); RED CELL DISTRIBUTION WIDTH 13.4 % (12.0-15.0); WHITE BLOOD COUNT 9.2 x10^3/uL (4.8-10.8)
[2018-02-23 11:53] LABS: ALBUMIN 4.5 g/dL (3.2-5.5); ALBUMIN/GLOBULIN RATIO 1.5 (1.0-2.2); BILIRUBIN,TOTAL 0.9 mg/dL (0.2-1.0); CALCIUM 9.5 mg/dL (8.5-10.3); CREATININE 0.6 mg/dL (0.4-1.0); TOTAL PROTEIN 7.6 g/dL (6.7-8.2)
[2018-02-23] MEDS ORDERED: PANTOPRAZOLE 40 MG VIAL IVP STA (11:55)
--- NOTE | 2018-02-23 11:55 | ED Physician Documentation ---
PD HPI ABD PAIN - Stated complaint Stated Complaint: ABD PX - Chief complaint Chief Complaint: Abd Pain - History obtained from History obtained from: Patient - History of Present Illness Timing - onset: Other (This is a irene 87-year-old woman with history of cholecystectomy appendectomy and hysterectomy who presents with 2 weeks of abdominal pain. It was vague before a couple of nights ago. Epigastric and left-sided. She did have 2 dark and tarry stools at the outset but none since. She has had 2 episodes of severe epigastric nonradiating pain, one yesterday and one last night. Each lasted about 2 hours. She vomited once today but it was light material, nothing coffee grounds or dark or bloody.) Review of Systems Ten Systems: 10 systems reviewed and negative Constitutional: reports: Fatigue, Weight Loss (About 8 pounds over the last few months). 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 - Present Medications Home Medications: Ambulatory Orders Medication Instructions Recorded Confirmed Omeprazole [PriLOSEC] 20 mg PO DAILY #14 capsule 03/11/16 05/29/17 Docusate Sodium 100 mg PO DAILY PRN #30 capsule 05/29/17 traZODone [Desyrel] 0.5 tab PO DAILY 05/29/17 05/29/17 Latanoprost/Pf [Latanoprost 0.005% 7.5 ml OP 02/23/18 02/23/18 Eye Drop] - Allergies Allergies/Adverse Reactions: Allergies Allergy/AdvReac Type Severity Reaction Status Date / Time Penicillins Allergy Unknown Verified 02/23/18 10:29 codeine AdvReac Nausea Verified 02/23/18 10:29 - Social History Does the pt smoke?: No Smoking Status: Never smoker Does the pt drink ETOH?: Yes ETOH Use: Wine Does the pt have substance abuse?: No - Family History Family history: reports: Non contributory - Immunizations Immunizations are current?: No Immunizations: TDAP >10years/unknown - POLST Patient has POLST: No PD ED PE NORMAL - Vitals Vital signs reviewed: Yes - General General: Alert and oriented X 3, No acute distress - HEENT HEENT: PERRL, EOMI - Neck Neck: Supple, no meningeal sign, No bony TTP - Cardiac Cardiac: RRR, No murmur - Respiratory Respiratory: No respiratory distress, Clear bilaterally - Abdomen Abdomen: Normal bowel sounds, Soft, Other (Minimal epigastric tenderness without surgical signs) - Rectal Rectal: Other (Rectal examination done with Josey RN, light colored stool that is guaiac negative) - Back Back: No CVA TTP, No spinal TTP - Derm Derm: Normal color, Warm and dry - Extremities Extremities: No edema, No calf tenderness / cord - Neuro Neuro: Alert and oriented X 3, Normal speech - Psych Psych: Normal mood, Normal affect Results - Vitals Vitals: Vital Signs - 24 hr 02/23/18 10:26 Temperature 35.7 C L Heart Rate 101 H Respiratory 16 Rate Blood Pressure 150/67 H O2 Saturation 97 Oxygen O2 Source Room air - Labs Labs: Laboratory Tests 02/23/18 02/23/18 02/23/18 10:55 10:55 10:55 WBC 9.2 RBC 4.38 Hgb 14.0 Hct 40.4 MCV 92.3 MCH 31.9 H MCHC 34.6 RDW 13.4 Plt Count 267 MPV 8.1 Neut # (Auto) 8.3 H Lymph # (Auto) 0.4 L [place] # (Auto) 0.4 Eos # (Auto) 0.0 Baso # (Auto) 0.0 Absolute Nucleated RBC 0.01 Nucleated RBC % 0.1 Sodium 136 Potassium 3.9 Chloride 101 Carbon Dioxide 24 Anion Gap 11.0 BUN 10 Creatinine 0.6 Estimated GFR (MDRD) 95 Glucose 142 H Calcium 9.5 Total Bilirubin 0.9 AST 181 H ALT 159 H Alkaline Phosphatase 77 Troponin I Total Protein 7.6 Albumin 4.5 Globulin 3.1 Albumin/Globulin Ratio 1.5 Lipase 67 H 69 H Urine Color Urine Clarity Urine pH Ur Specific [place] Urine Protein Urine Glucose (UA) Urine Ketones Urine Occult Blood Urine Nitrite Urine Bilirubin Urine Urobilinogen Ur Leukocyte Esterase Ur Microscopic Review Urine Culture Comments 02/23/18 02/23/18 10:55 12:50 WBC RBC Hgb Hct MCV MCH MCHC RDW Plt Count MPV Neut # (Auto) Lymph # (Auto) [place] # (Auto) Eos # (Auto) Baso # (Auto) Absolute Nucleated RBC Nucleated RBC % Sodium Potassium Chloride Carbon Dioxide Anion Gap BUN Creatinine Estimated GFR (MDRD) Glucose Calcium Total Bilirubin AST ALT Alkaline Phosphatase Troponin I < 0.04 Total Protein Albumin Globulin Albumin/Globulin Ratio Lipase Urine Color YELLOW Urine Clarity CLEAR Urine pH 6.0 Ur Specific [place] 1.010 Urine Protein NEGATIVE Urine Glucose (UA) NEGATIVE Urine Ketones 15 H Urine Occult Blood NEGATIVE Urine Nitrite NEGATIVE Urine Bilirubin NEGATIVE Urine Urobilinogen 0.2 (NORMAL) Ur Leukocyte Esterase NEGATIVE Ur Microscopic Review NOT INDICATED Urine Culture Comments NOT INDICATED - Rads (name of study) CT A/P Radiology: EMP read contemporaneously (Diverticulosis without diverticulitis. Intra-and extrahepatic biliary ductal dilatation status post cholecystectomy) PD MEDICAL DECISION MAKING - ED course ED course: 87-year-old woman with worsening episodic and at times severe epigastric pain. She status post remote cholecystectomy. Workup shows modest elevation of liver enzymes and dilation of the common bile duct. Case discussed with Dr. Musa, the on-call surgeon here who recommends transfer to a facility capable of ERCP and [facility] was paged. Accepted by Dr. Barahona 2:26 PM to [facility] for higher level of care and cobras were completed. Patient agreeable. Departure - Departure Disposition: 02 Transfer Acute Care Hosp Clinical Impression: Bile duct, common, cystic dilatation, Epigastric pain, Elevated liver enzymes
[2018-02-23] MEDS ORDERED: IOPAMIDOL-300 100 ML VIAL ONE (12:13)
[2018-02-23] MEDS ORDERED: IOPAMIDOL-300 100 ML VIAL IVP ONE (12:29)
--- NOTE | 2018-02-23 12:45 | CT Report ---
Reason: IV only, upper abd pain Procedure Date: 02/23/2018 Accession Number: [id number] / [id number] Procedure: CT - Abdomen/Pelvis W/ CPT Code: FULL RESULT: EXAM: CT ABDOMEN AND PELVIS EXAM DATE: 02/23/2018 12:27 PM. CLINICAL HISTORY: IV only, upper abdominal pain. COMPARISONS: ABDOMEN/PELVIS W/ 03/11/2016 4:29 PM. TECHNIQUE: Routine helical CT imaging was performed through the abdomen and pelvis. IV contrast: ISOVUE 300 100 mL. Enteric contrast: No. Reconstructions: Coronal and sagittal. In accordance with CT protocol optimization, one or more of the following dose reduction techniques were utilized for this exam: automated exposure control, adjustment of mA and/or KV based on patient size, or use of iterative reconstructive technique. FINDINGS: Lung Bases: Unremarkable. Liver: No masses. Gallbladder/Bile Ducts: The gallbladder is surgically absent with dilation of the common bile duct to 1.2 cm and mild intrahepatic biliary ductal dilation. Spleen: Normal. Pancreas: Normal. Adrenal Glands: Normal. Kidneys: Normal. No masses or hydronephrosis. Peritoneal Cavity/Bowel: Diverticulosis without diverticulitis. No free fluid, free air or adenopathy. No masses or acute inflammatory process. The appendix is not visualized, though there is no ancillary evidence of inflammation in the region of the cecum. Pelvic Organs: Normal. The bladder and visualized pelvic organs are within normal limits. Vasculature: Atherosclerosis without abdominal aneurysm. Bones: No significant abnormality. Other: None. IMPRESSION: Intrahepatic and extrahepatic biliary ductal dilation in the setting of status post cholecystectomy. In absence of deranged laboratory values, this can be a normal postoperative finding. RADIA
[2018-02-23 13:08] LABS: BILIRUBIN,URINE NEGATIVE (NEGATIVE); GLUCOSE, URINE (UA) NEGATIVE (NEGATIVE); KETONES,URINE (UA) 15 mg/dL (NEGATIVE); LEUKOCYTE ESTERASE, URINE NEGATIVE (NEGATIVE); NITRITE,URINE NEGATIVE (NEGATIVE); OCCULT BLOOD,URINE NEGATIVE (NEGATIVE); PROTEIN,URINE NEGATIVE (NEGATIVE); UROBILINOGEN,URINE 0.2 (NORMAL) E.U./dL (NORMAL)
[2018-02-23 13:13] LABS: CLARITY,URINE CLEAR (CLEAR)
[2018-02-23 14:49] VITALS: BP 144/88
[2018-02-23] MEDS ORDERED: ONDANSETRON 4 MG/2 ML VIAL IVP STA (15:07)
[2018-02-23] MEDS ORDERED: MORPHINE 2 MG/ML CARPUJECT IVP STA (15:07)
== END 2018-02-23 16:06 | disposition short-term general hospital (02) ==
LOC: ED 10:21
DX: K83.8 Other specified diseases of biliary tract (principal); R74.8 Abnormal levels of other serum enzymes; R10.13 Epigastric pain; K57.90 Diverticulosis of intestine, part unspecified, without perforation or abscess without bleeding; I10 Essential (primary) hypertension; I51.7 Cardiomegaly
CPT/HCPCS: 36415; 74177; 80053; 81003; 83690; 84484; 85025; 93005; 96374; 96375; 99284; Q9967; 81001; 87086

== ENCOUNTER 2018-03-03 15:08 | Outpatient (CLI) | payer MEDICARE, OTHER ==
[2018-03-03 18:03] LABS: ALBUMIN 4.3 g/dL (3.2-5.5); BILIRUBIN,DIRECT 0.1 mg/dL (0.1-0.5); BILIRUBIN,TOTAL 0.7 mg/dL (0.2-1.0); TOTAL PROTEIN 6.8 g/dL (6.7-8.2)
== END 2018-03-03 15:09 | disposition home or self-care (01) ==
LOC: LAB.F 15:08
PROVIDERS: ATTEND Internal Medicine Gastroenterology
DX: R94.5 Abnormal results of liver function studies (principal)
CPT/HCPCS: 36415; 80076; 83690

== ENCOUNTER 2018-06-19 13:20 | Emergency (ER) | payer MEDICARE, OTHER ==
[2018-06-19] MEDS ORDERED: IOVERSOL 320 100 ML VIAL IVP ONE ×3 (13:21→15:03)
[2018-06-19 13:48] LABS: BASOPHILS # (AUTO) 0.1 10^3/uL (0.0-0.1); BASOPHILS % (AUTO) 1.2 %; EOSINOPHILS # (AUTO) 0.1 10^3/uL (0.0-0.7); EOSINOPHILS % (AUTO) 1.1 %; HGB - HEMOGLOBIN 14.4 g/dL (12.0-16.0); LYMPHOCYTES # (AUTO) 1.7 10^3/uL (1.5-3.5); LYMPHOCYTES % (AUTO) 26.7 %; MEAN CORPUSCULAR HEMOGLOBIN 31.2 pg (27.0-31.0); MEAN CORPUSCULAR HGB CONC 34.7 g/dL (32.0-36.0); MEAN PLATELET VOLUME 7.6 fL (7.9-10.8); MONOCYTES # (AUTO) 0.6 10^3/uL (0.0-1.0); MONOCYTES % (AUTO) 9.4 %; NEUTROPHILS # (AUTO) 3.8 10^3/uL (1.5-6.6); NEUTROPHILS % (AUTO) 61.6 %; PLT - PLATELET COUNT 241 10^3/uL (130-450); RED BLOOD COUNT 4.61 10^6/uL (4.20-5.40); RED CELL DISTRIBUTION WIDTH 14.8 % (12.0-15.0); WHITE BLOOD COUNT 6.2 x10^3/uL (4.8-10.8)
--- NOTE | 2018-06-19 13:48 | ED Physician Documentation ---
PD HPI ABD PAIN - Stated complaint Stated Complaint: ABD PX - Chief complaint Chief Complaint: Abd Pain - History obtained from History obtained from: Patient - History of Present Illness Timing - onset: How many weeks ago (1) Timing - duration: Weeks (1) Timing - details: Gradual onset, Waxing and waning Quality: Cramping, Aching, Pain Location: Epigastric, Periumbilical Radiation: No: Chest, Lower back Improved by: No: Eating Worsened by: Eating (but after about 15-20 minutes) Associated symptoms: Nausea. No: Fever, Vomiting, Diarrhea, Constipation Similar symptoms before: Has not had sx before Review of Systems Constitutional: denies: Fever, Chills, Myalgias Nose: denies: Rhinorrhea / runny nose, Congestion Throat: denies: Sore throat Respiratory: denies: Cough GI: reports: Abdominal Pain, Nausea. 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 - Present Medications Home Medications: Ambulatory Orders Medication Instructions Recorded Confirmed Omeprazole [PriLOSEC] 20 mg PO DAILY #14 capsule 03/11/16 05/29/17 Latanoprost/Pf [Latanoprost 0.005% 7.5 ml OP 02/23/18 02/23/18 Eye Drop] Docusate Sodium 100 mg PO DAILY #15 capsule 06/19/18 Famotidine 20 mg PO DAILY #15 tablet 06/19/18 Naproxen 375 mg PO BID #15 tablet 06/19/18 Tramadol HCl 50 mg PO Q6H PRN #15 tablet 06/19/18 - Allergies Allergies/Adverse Reactions: Allergies Allergy/AdvReac Type Severity Reaction Status Date / Time Penicillins Allergy Unknown Verified 06/19/18 13:45 codeine AdvReac Nausea Verified 06/19/18 13:45 - Social History Does the pt smoke?: No Smoking Status: Never smoker Does the pt drink ETOH?: Yes ETOH Use: Wine Does the pt have substance abuse?: No - Immunizations Immunizations are current?: No Immunizations: TDAP >10years/unknown - POLST Patient has POLST: No PD ED PE NORMAL - Vitals Vital signs reviewed: Yes - General General: Alert and oriented X 3, Well developed/nourished, Other (appears uncomfortable, holding central abdomen.) - HEENT HEENT: Pharynx benign - Neck Neck: Supple, no meningeal sign, No adenopathy - Cardiac Cardiac: RRR, No murmur - Respiratory Respiratory: Clear bilaterally - Abdomen Abdomen: Soft, Non distended, No organomegaly, Other (tender central abd without percussion nor rebound tenderness. ). No: Normal bowel sounds (increased) - Female Female : Deferred - Rectal Rectal: Deferred - Back Back: No CVA TTP - Derm Derm: Normal color, Warm and dry - Neuro Neuro: Alert and oriented X 3, No motor deficit, Normal speech Results - Vitals Vitals: Oxygen O2 Source Room air - Labs Labs: Laboratory Tests 06/19/18 06/19/18 06/19/18 13:40 13:40 13:40 WBC 6.2 RBC 4.61 Hgb 14.4 Hct 41.5 MCV 90.0 MCH 31.2 H MCHC 34.7 RDW 14.8 Plt Count 241 MPV 7.6 L Neut # (Auto) 3.8 Lymph # (Auto) 1.7 [place] # (Auto) 0.6 Eos # (Auto) 0.1 Baso # (Auto) 0.1 Absolute Nucleated RBC 0.00 Nucleated RBC % 0.0 Sodium 132 L Potassium 3.9 Chloride 98 L Carbon Dioxide 23 Anion Gap 11.0 BUN 8 Creatinine 0.6 Estimated GFR (MDRD) 95 Glucose 104 H Calcium 9.9 Magnesium 2.0 Total Bilirubin 0.9 AST 21 ALT 18 Alkaline Phosphatase 77 Total Protein 7.4 Albumin 4.7 Globulin 2.7 Albumin/Globulin Ratio 1.7 Lipase 30 Urine Color Urine Clarity Urine pH Ur Specific [place] Urine Protein Urine Glucose (UA) Urine Ketones Urine Occult Blood Urine Nitrite Urine Bilirubin Urine Urobilinogen Ur Leukocyte Esterase Ur Microscopic Review Urine Culture Comments 06/19/18 14:30 WBC RBC Hgb Hct MCV MCH MCHC RDW Plt Count MPV Neut # (Auto) Lymph # (Auto) [place] # (Auto) Eos # (Auto) Baso # (Auto) Absolute Nucleated RBC Nucleated RBC % Sodium Potassium Chloride Carbon Dioxide Anion Gap BUN Creatinine Estimated GFR (MDRD) Glucose Calcium Magnesium Total Bilirubin AST ALT Alkaline Phosphatase Total Protein Albumin Globulin Albumin/Globulin Ratio Lipase Urine Color YELLOW Urine Clarity CLEAR Urine pH 6.0 Ur Specific [place] <=1.005 Urine Protein NEGATIVE Urine Glucose (UA) NEGATIVE Urine Ketones 15 H Urine Occult Blood TRACE-LYSE Urine Nitrite NEGATIVE Urine Bilirubin NEGATIVE Urine Urobilinogen 0.2 (NORMAL) Ur Leukocyte Esterase NEGATIVE Ur Microscopic Review NOT INDICATED Urine Culture Comments NOT INDICATED - Rads (name of study) abd CT Radiology: Prelim report reviewed (no acute process seen. s/p CCY with stable bile duct size.), See rad report PD MEDICAL DECISION MAKING - ED course Complexity details: reviewed results, re-evaluated patient, considered differential, d/w patient Departure - Departure Disposition: 01 Home, Self Care Clinical Impression: Abdominal pain Qualifiers: Abdominal location: periumbilical Qualified Code(s): R10.33 - Periumbilical pain Condition: Stable Record reviewed to determine appropriate education?: Yes Instructions: ED Abdominal Pain Unkn Cause Follow-Up: Prerna Hopkins PA-C [Primary Care Provider] - Prescriptions: Docusate Sodium 100 mg PO DAILY #15 capsule Famotidine 20 mg PO DAILY #15 tablet Naproxen 375 mg PO BID #15 tablet Tramadol HCl 50 mg PO Q6H PRN #15 tablet PRN Reason: Pain Comments: Your tests here did not show an obvious acute cause for the pain. Things that will not show on the CT scan or blood tests can be irritation or inflammation through the colon and also within the stomach lining. However the GI cocktail targeted at the stomach did not improve your symptoms so does not sound stomach itself. I would still suggest some acid reducing medicine so that anti-inflammatories were going to used to not bother her stomach. We will treat your pain with naproxen anti-inflammatories twice daily for the next several days to week. Add Tylenol or tramadol if needed for pains. Use a stool softener so the medications do not cause constipation. Recheck if not improved over the next several days. Return if worsening. Discharge Date/Time: 06/19/18 17:58
[2018-06-19 14:00] LABS: ALBUMIN 4.7 g/dL (3.2-5.5); ALBUMIN/GLOBULIN RATIO 1.7 (1.0-2.2); BILIRUBIN,TOTAL 0.9 mg/dL (0.2-1.0); CALCIUM 9.9 mg/dL (8.5-10.3); CREATININE 0.6 mg/dL (0.4-1.0); TOTAL PROTEIN 7.4 g/dL (6.7-8.2)
[2018-06-19] MEDS ORDERED: SODIUM CHLORIDE 0.9% 1,000 ML IV ONE (14:10)
[2018-06-19] MEDS ORDERED: ONDANSETRON 4 MG/2 ML VIAL IVP STA (14:10)
[2018-06-19] MEDS ORDERED: MORPHINE 10 MG/ML VIAL IVP STA ×2 (14:10→16:52)
[2018-06-19] MEDS ORDERED: FAMOTIDINE 20 MG/2 ML VIAL IVP STA (14:11)
[2018-06-19] MEDS ORDERED: LIDOCAINE VISCOUS 2% 15 ML UDC MM STA (14:11)
[2018-06-19] MEDS ORDERED: MAG HYDROX/AL HYDROX/SIMETH 30 ML UDC PO STA (14:11)
--- NOTE | 2018-06-19 15:38 | CT Report ---
Reason: upper abd pain for 3 days Procedure Date: 06/19/2018 Accession Number: [id number] / [id number] Procedure: CT - Abdomen/Pelvis W CPT Code: FULL RESULT: EXAM: CT ABDOMEN AND PELVIS EXAM DATE: 06/19/2018 03:02 PM. CLINICAL HISTORY: Upper abd pain for 3 days. COMPARISONS: ABDOMEN/PELVIS W/ 02/23/2018 12:23 PM. TECHNIQUE: Routine helical CT imaging was performed through the abdomen and pelvis. IV contrast: [id number] 80 ML. Enteric contrast: No. Reconstructions: Coronal and sagittal. In accordance with CT protocol optimization, one or more of the following dose reduction techniques were utilized for this exam: automated exposure control, adjustment of mA and/or KV based on patient size, or use of iterative reconstructive technique. FINDINGS: Lung Bases: Unremarkable. Liver: Normal. No masses. Gallbladder/Bile Ducts: Status post cholecystectomy. Stable extrahepatic and mild intrahepatic biliary ductal dilatation. Spleen: Normal. Pancreas: Normal. Adrenal Glands: Normal. Kidneys: Stable lateral left cortical thinning/scar versus developmental lobulation. No masses or hydronephrosis. Peritoneal Cavity/Bowel: Substantial colonic diverticulosis without chano diverticulitis. No free fluid, free air or adenopathy. No masses or acute inflammatory process. The appendix is not clearly visualized but there is no evidence of appendicitis. Pelvic Organs: Grossly normal, moderately distended bladder. The uterus is not visualized. Vasculature: No aneurysms or other significant abnormality. Bones: Stable spine degenerative disease. Stable right iliac sclerotic focus likely represents a benign bone island. Other: None. IMPRESSION: 1. No definite acute abnormality of the abdomen or pelvis or significant interval change. 2. Status post cholecystectomy with stable ex hepatic and mild intrahepatic biliary ductal dilatation. 3. Additional stable chronic findings. RADIA
[2018-06-19 15:42] LABS: BILIRUBIN,URINE NEGATIVE (NEGATIVE); GLUCOSE, URINE (UA) NEGATIVE (NEGATIVE); KETONES,URINE (UA) 15 mg/dL (NEGATIVE); LEUKOCYTE ESTERASE, URINE NEGATIVE (NEGATIVE); NITRITE,URINE NEGATIVE (NEGATIVE); OCCULT BLOOD,URINE TRACE-LYSE (NEGATIVE); PROTEIN,URINE NEGATIVE (NEGATIVE); UROBILINOGEN,URINE 0.2 (NORMAL) E.U./dL (NORMAL)
[2018-06-19 15:47] LABS: CLARITY,URINE CLEAR (CLEAR)
[2018-06-19] MEDS ORDERED: KETOROLAC 15 MG/ML VIAL IVP STA ×2 (16:52→17:36)
[2018-06-19] MEDS ORDERED: MORPHINE 2 MG/ML CARPUJECT IVP STA (17:36)
[2018-06-19 19:39] VITALS: BP 124/86
== END 2018-06-19 17:58 | disposition home or self-care (01) ==
LOC: ED 13:20
DX: R10.33 Periumbilical pain (principal); I45.2 Bifascicular block; I10 Essential (primary) hypertension; E78.00 Pure hypercholesterolemia, unspecified
CPT/HCPCS: 36415; 74177; 80053; 81003; 83690; 83735; 85025; 93005; 96361; 96374; 96375; 99283; A9270; Q9967; 81001; 87086

== ENCOUNTER 2018-08-13 10:51 | Outpatient (CLI) | payer MEDICARE, OTHER ==
--- NOTE | 2018-08-13 12:26 | DEXA Report ---
Reason: ASYMPTOMATIC MENOPAUSAL STATE Procedure Date: 08/13/2018 Accession Number: [id number] / [id number] Procedure: DEX - Dexa Spine and/or Hip CPT Code: FULL RESULT: EXAM: Dexa Spine and/or Hip DATE: 08/13/2018 11:24 AM CLINICAL HISTORY: ASYMPTOMATIC MENOPAUSAL STATE TECHNIQUE: Dual energy x-ray absorptiometry (DXA) was performed on a [employer]. Regions measured are the AP Spine, femoral neck, and if needed forearm. COMPARISON: None. In accordance with the International Society for Clinical Densitometry (ISCD) guidelines, data from previous exams may be reanalyzed using current recommendations and techniques. This is done to allow a more accurate basis for comparison with the current study. FINDINGS: The data for the lumbar spine is as follows: BMD (g/cm/cm) T-SCORE Z-SCORE REGION L1 1.073 -0.5 1.8 L2 1.188 -0.1 2.1 L3 1.295 0.8 3.0 L4 1.257 0.5 2.7 TOTAL 1.212 0.3 2.5 NOTE: All evaluable vertebrae are used for classification The data for the hip is as follows: BMD (g/cm/cm) T-SCORE Z-SCORE REGION Neck 0.903 -1.0 1.7 TOTAL 0.938 -0.6 2.0 NOTE: The femoral neck or total proximal femur, whichever is lowest, is used for classification. IMPRESSION: THE WHO CLASSIFICATION BASED ON THE INTERNATIONAL REFERENCE STANDARD IS NORMAL. THE FRACTURE RISK IS NOT INCREASED. RECOMMENDATION: Patients with diagnosis of osteoporosis or osteopenia should have regular bone mineral density assessment. For those eligible for Medicare, routine testing is allowed once every 2 years. Testing frequency can be increased for patients who have rapidly progressing disease or for those who are receiving medical therapy to restore bone mass. COMMENT: World Health Organization (WHO) definitions for osteoporosis and osteopenia: NORMAL BMD: T-score at -1.0 or higher, fracture risk is low OSTEOPENIA BMD: T-score between -1.0 and -2.5, fracture risk is increased. OSTEOPOROSIS BMD: T-score at -2.5 or lower, fracture risk is high. National Osteoporosis Foundation recommends: 1. Obtain adequate dietary calcium (at least 1200 mg per day) and vitamin D (400-800 international units per day). 2. Participate, as appropriate, in regular weightbearing and muscle-strengthening exercise. 3. Avoid tobacco use and reduce alcohol and caffeine intake. 4. For more detailed information see the website at www.NOF.org.
== END 2018-08-13 10:52 | disposition home or self-care (01) ==
LOC: DI 10:51
PROVIDERS: ATTEND Internal Medicine
DX: Z78.0 Asymptomatic menopausal state (principal)
CPT/HCPCS: 77080

== ENCOUNTER 2018-12-13 09:31 | Outpatient (CLI) | payer MEDICARE, OTHER ==
[2018-12-13 17:45] LABS: ALBUMIN 3.9 g/dL (3.2-5.5); BILIRUBIN,DIRECT 0.1 mg/dL (0.1-0.5); BILIRUBIN,TOTAL 0.5 mg/dL (0.2-1.0); TOTAL PROTEIN 6.7 g/dL (6.7-8.2)
== END 2018-12-13 09:32 | disposition home or self-care (01) ==
LOC: LAB.S 09:31
PROVIDERS: ATTEND Physician Assistant
DX: R10.84 Generalized abdominal pain (principal)
CPT/HCPCS: 36415; 80076; 83690

== ENCOUNTER 2019-04-09 08:41 | Emergency (ER) | payer MEDICARE, OTHER ==
[2019-04-09 08:50] VITALS: BP 151/80
[2019-04-09 09:12] LABS: CLARITY,URINE CLEAR (CLEAR)
[2019-04-09 09:13] LABS: BILIRUBIN,URINE NEGATIVE (NEGATIVE); GLUCOSE, URINE (UA) NEGATIVE (NEGATIVE); KETONES,URINE (UA) NEGATIVE (NEGATIVE); LEUKOCYTE ESTERASE, URINE NEGATIVE (NEGATIVE); NITRITE,URINE NEGATIVE (NEGATIVE); OCCULT BLOOD,URINE NEGATIVE (NEGATIVE); PROTEIN,URINE NEGATIVE (NEGATIVE); UROBILINOGEN,URINE 0.2 (NORMAL) E.U./dL (NORMAL)
--- NOTE | 2019-04-09 09:26 | ED Physician Documentation ---
PD HPI FEMALE - Stated complaint Stated Complaint: FEMAL - Chief complaint Chief Complaint: General - History obtained from History obtained from: Patient - History of Present Illness Timing - onset: How many weeks ago (1) Timing - duration: Weeks (1) Timing - details: Gradual onset, Still present Associated symptoms: Vaginal pain, Dysuria, Urinary frequency Similar symptoms before: No diagnosis Recently seen: Not recently seen - Treatment prior to arrival Treatment prior to arrival: 88-year-old female with a one-week history of urinary urgency and frequency with small amounts of urine being produced and a sensation that is difficult to get a urine stream started. She has some irritation and swelling to the urethra. She states that she has had some of these symptoms previously over the years that were much less apparent. She feels like she has urinary tract infection. She has not had fever or vomiting. She is not had flank pain. 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 She has never been diagnosed subsequently with any episodes. Review of Systems Constitutional: denies: Fever Eyes: denies: Decreased vision Ears: denies: Ear pain Nose: denies: Congestion Throat: denies: Sore throat Respiratory: denies: Cough GI: reports: Abdominal Pain. denies: Nausea, Vomiting, Constipation, Diarrhea : reports: Dysuria, Frequency PD PAST MEDICAL HISTORY - Past Medical History Cardiovascular: Hypertension, High cholesterol Respiratory: None Neuro: None Endocrine/Autoimmune: None GI: GERD, Diverticulitis GLASS GLAZIER: None : None HEENT: None Psych: None Musculoskeletal: Osteoarthritis Derm: None - Past Surgical History Past Surgical History: Yes General: Cholecystectomy, Appendectomy, Colonoscopy Ortho: Knee replacement /GLASS GLAZIER: Hysterectomy - Present Medications Home Medications: Ambulatory Orders Medication Instructions Recorded Confirmed Omeprazole [PriLOSEC] 20 mg PO DAILY #14 capsule 03/11/16 05/29/17 Famotidine 20 mg PO DAILY #15 tablet 06/19/18 Valacyclovir HCl [Valacyclovir] 1,000 mg PO TID #21 tablet 04/09/19 Zolpidem [Ambien] 5 mg PO HS 04/09/19 04/09/19 - Allergies Allergies/Adverse Reactions: Allergies Allergy/AdvReac Type Severity Reaction Status Date / Time Penicillins Allergy Unknown Verified 04/09/19 08:50 codeine AdvReac Nausea Verified 04/09/19 08:50 - Social History Does the pt smoke?: No Smoking Status: Never smoker Does the pt drink ETOH?: Yes Does the pt have substance abuse?: No - Immunizations Immunizations are current?: No Immunizations: TDAP >10years/unknown - POLST Patient has POLST: No PD ED PE NORMAL - Vitals Vital signs reviewed: Yes (hypertensive ) - General General: Alert and oriented X 3, No acute distress, Well developed/nourished - HEENT HEENT: Atraumatic, PERRL, EOMI - Neck Neck: Supple, no meningeal sign - Respiratory Respiratory: No respiratory distress - Female Female : Nephrology Social Worker present (Letty), Other (swelling the right side of the u rethra with tenderness. No specific blistering.) - Back Back: No CVA TTP, No spinal TTP - Derm Derm: Normal color, Warm and dry, No rash - Extremities Extremities: No deformity, No edema - Neuro Neuro: Alert and oriented X 3, vise hand 2-12 intact, No motor deficit, No sensory deficit, Normal speech Eye Opening: Spontaneous Motor: Obeys Commands Verbal: Oriented GCS Score: 15 - Psych Psych: Normal mood, Normal affect Results - Vitals Vitals: Vital Signs - 24 hr 04/09/19 08:47 Temperature 37.0 C Heart Rate 86 Respiratory 16 Rate Blood Pressure 151/80 H O2 Saturation 100 Oxygen O2 Source Room air - Labs Labs: Laboratory Tests 04/09/19 09:00 Urine Color YELLOW Urine Clarity CLEAR Urine pH 7.0 Ur Specific [place] 1.010 Urine Protein NEGATIVE Urine Glucose (UA) NEGATIVE Urine Ketones NEGATIVE Urine Occult Blood NEGATIVE Urine Nitrite NEGATIVE Urine Bilirubin NEGATIVE Urine Urobilinogen 0.2 (NORMAL) Ur Leukocyte Esterase NEGATIVE Ur Microscopic Review NOT INDICATED Urine Culture Comments NOT INDICATED Procedures - Bedside sono Bedside sono by EMP: With use of bedside ultrasound the bladder is imaged there is a small amount of urine in it and there is no free fluid in the pelvis the area is mildly tender. There is no evidence of retention. PD MEDICAL DECISION MAKING - ED course Complexity details: reviewed old records, reviewed results, re-evaluated patient, considered differential, d/w patient ED course: 88-year-old female with urinary urgency and urethral irritation has a negative urinalysis and swelling to the right side of the urethra consistent with an outbreak of herpes simplex. We will place her on some valacyclovir I have asked the patient to take 5 days of this medicine and hold 2 days for future outbreak and to talk to her primary care doctor about medication for outbreaks as they occur. Today we did examine the patient's bladder with a bedside ultrasound we did not find any evidence of retention. Departure - Departure Disposition: 01 Home, Self Care Clinical Impression: Herpes genitalis Qualifiers: Herpes simplex infection site: other site of urogenital tract Qualified Code(s): A60.09 - Herpesviral infection of other urogenital tract Condition: Stable Instructions: ED Herpes Simplex Virus Type 2 Follow-Up: Prerna Hopkins PA-C [Primary Care Provider] - Prescriptions: Valacyclovir HCl [Valacyclovir] 1,000 mg PO TID #21 tablet
== END 2019-04-09 09:52 | disposition home or self-care (01) ==
LOC: ED 08:41
DX: A60.09 Herpesviral infection of other urogenital tract (principal); I10 Essential (primary) hypertension
CPT/HCPCS: 81001; 81003; 87086; 99283

== ENCOUNTER 2019-04-15 08:00 | Outpatient (CLI) | payer MEDICARE, OTHER ==
[2019-04-15 23:05] LABS: CANDIDA GROUP DNA NEGATIVE (NEGATIVE); CANDIDA KRUSEI DNA NEGATIVE (NEGATIVE); TRICHOMONAS VAGINALIS DNA NEGATIVE (NEGATIVE)
== END 2019-04-15 23:59 | disposition home or self-care (01) ==
LOC: LAB.R 08:00
PROVIDERS: ATTEND Physician Assistant Medical
DX: N76.0 Acute vaginitis (principal)
CPT/HCPCS: 87661; 87801

== ENCOUNTER 2020-02-08 10:30 | Outpatient (CLI) | payer MEDICARE, OTHER ==
[2020-02-08 16:02] LABS: BASOPHILS # (AUTO) 0.1 10^3/uL (0.0-0.1); BASOPHILS % (AUTO) 0.7 %; EOSINOPHILS # (AUTO) 0.1 10^3/uL (0.0-0.7); EOSINOPHILS % (AUTO) 1.3 %; HGB - HEMOGLOBIN 13.1 g/dL (12.0-16.0); LYMPHOCYTES # (AUTO) 1.7 10^3/uL (1.5-3.5); MEAN CORPUSCULAR HEMOGLOBIN 30.7 pg (27.0-31.0); MEAN CORPUSCULAR HGB CONC 32.8 g/dL (32.0-36.0); MEAN CORPUSCULAR VOLUME 93.7 fL (81.0-99.0); MEAN PLATELET VOLUME 9.9 fL (7.9-10.8); MONOCYTES # (AUTO) 0.6 10^3/uL (0.0-1.0); MONOCYTES % (AUTO) 9.1 %; NEUTROPHILS # (AUTO) 4.5 10^3/uL (1.5-6.6); NEUTROPHILS % (AUTO) 64.6 %; PLT - PLATELET COUNT 281 10^3/uL (130-450); RED BLOOD COUNT 4.27 10^6/uL (4.20-5.40); RED CELL DISTRIBUTION WIDTH 12.4 % (12.0-15.0); WHITE BLOOD COUNT 6.9 x10^3/uL (4.8-10.8)
[2020-02-08 16:45] LABS: ALBUMIN 4.4 g/dL (3.2-5.5); ALBUMIN/GLOBULIN RATIO 1.5 (1.0-2.2); ALKALINE PHOSPHATASE 78 IU/L (42-121); ALT ALANINE AMINOTRANSFERASE 18 IU/L (10-60); AST ASPARTATE AMINOTRANSFERASE 23 IU/L (10-42); BILIRUBIN,TOTAL 0.8 mg/dL (0.2-1.0); BUN - BLOOD UREA NITROGEN 11 mg/dL (6-20); CALCIUM 9.7 mg/dL (8.5-10.3); CARBON DIOXIDE - CO2 23 mmol/L (21-32); CHLORIDE 97 mmol/L (101-111); CHOL/HDL RATIO 3.1 (<4.4); CHOLESTEROL 264 mg/dL; CREATININE 0.7 mg/dL (0.4-1.0); GLUCOSE 98 mg/dL (70-100); HDL CHOLESTEROL 84 mg/dL; LDL CHOLESTEROL,CALCULATED 150 mg/dL; LDL/HDL RATIO 1.8 (<4.4); SODIUM 132 mmol/L (135-145); TOTAL PROTEIN 7.3 g/dL (6.7-8.2); VLDL CHOLESTEROL 30 mg/dL
== END 2020-02-08 10:31 | disposition home or self-care (01) ==
LOC: LAB.S 10:30
PROVIDERS: ATTEND Registered Nurse
DX: G47.9 Sleep disorder, unspecified (principal); I10 Essential (primary) hypertension; K22.70 Barrett's esophagus without dysplasia; K21.9 Gastro-esophageal reflux disease without esophagitis; E78.5 Hyperlipidemia, unspecified
CPT/HCPCS: 36415; 80053; 80061; 83721; 84443; 85025

== ENCOUNTER 2020-06-25 13:28 | Outpatient (CLI) | payer MEDICARE, OTHER ==
--- NOTE | 2020-06-25 16:41 | XRAY Report ---
PROCEDURE: Foot 2 View RT INDICATIONS: BONY ABNORMALITY TECHNIQUE: 2 views of the foot were acquired. COMPARISON: None FINDINGS: Bones: No fractures or dislocations. No suspicious bony lesions. There is severe first MTP as well as scattered IP degenerative narrowing. Areas of subchondral sclerosis and periarticular osteophytes are present. Midfoot degenerative narrowing is also present.It is noted that there is a small area o f what appears to be osteophyte along the lateral aspect of the tarsal bones at the area of palpable concern. Soft tissues: No tibiotalar joint effusion. Achilles tendon appears normal. IMPRESSION: First MTP as well as IP degenerative narrowing. Small appearance of degenerative osteophyte at the le alessandra of palpable concern. Reviewed by: Kassidy Lehman MD on 06/25/2020 4:39 PM PST Approved by: Kassidy Lehman MD on 06/25/2020 4:39 PM [facility] Station ID: [id number]
== END 2020-06-25 13:29 | disposition home or self-care (01) ==
LOC: DI.S 13:28
PROVIDERS: ATTEND Registered Nurse
DX: M19.071 Primary osteoarthritis, right ankle and foot (principal); M25.774 Osteophyte, right foot

== ENCOUNTER 2020-08-29 08:00 | Outpatient (CLI) | payer MEDICARE, OTHER | END 2020-08-29 23:59 | disposition home or self-care (01) | LOC: LAB.S 08:00 | PROVIDERS: ATTEND Physician Assistant Medical | DX: R32 Unspecified urinary incontinence (principal); D72.9 Disorder of white blood cells, unspecified | CPT/HCPCS: 87077; 87086; 87181 ==

== ENCOUNTER 2020-08-29 12:09 | Outpatient (CLI) | payer MEDICARE, OTHER | END 2020-08-29 12:10 | disposition short-term general hospital (02) | LOC: EMS 12:09 | DX: R10.12 Left upper quadrant pain (principal) | CPT/HCPCS: A0425; A0429 ==

== ENCOUNTER 2020-11-05 08:00 | Outpatient (CLI) | payer MEDICARE, OTHER | END 2020-11-05 23:59 | disposition home or self-care (01) | LOC: LAB.S 08:00 | PROVIDERS: ATTEND Pediatrics | DX: R32 Unspecified urinary incontinence (principal); D72.9 Disorder of white blood cells, unspecified | CPT/HCPCS: 87077; 87086 ==